=== PATIENT | male | born 2000 | race Caucasian/White ===

== ENCOUNTER 2023-07-19 13:38 | Emergency (ER) | payer BC, SELFPAY ==
[2023-07-19 13:53] VITALS: BP 141/79; PULSE 62; RESP 12; TEMP 37.2; O2SAT 100
--- NOTE | 2023-07-19 14:07 | ED.SKABFB ---
HPI - Skin/Abscess/Foreign Bdy General Chief complaint: Skin/Abscess/Foreign Body Stated complaint: Rash Time Seen by Provider: 07/19/23 14:10 Source: patient and RN notes reviewed Mode of arrival: ambulatory Limitations: no limitations History of Present Illness HPI narrative: 23-year-old male [facility] rash to bilateral forearms. Denies it being anywhere else Rash appeared 1 week ago. Has been using [id number] products with minimal relief. Onset (ago): week(s) (1) Related Data Allergies Allergy/AdvReac Type Severity Reaction Status Date / Time No Known Allergies Allergy Verified 07/19/23 13:53 Review of Systems Review of Systems: All systems reviewed & are unremarkable except as noted in HPI and below Constitutional: Constitutional: Reports no additional constitutional complaints Eyes: Eyes: Reports no additional eye complaints ENT: Reports system reviewed and no additional complaints, except as documented Cardiovascular: Cardiovascular: Reports no additional cardiovascular complaints, Denies chest pain and Denies dyspnea Respiratory: Respiratory: Reports no additional respiratory complaints, Denies chest congestion, Denies cough and Denies dyspnea Gastrointestinal: Gastrointestinal: Reports no additional gastrointestinal complaints, Denies abdominal pain, Denies nausea and Denies vomiting Musculoskeletal: Musculoskeletal: Reports no additional musculoskeletal complaints Integumentary/Breasts: Skin/Breast: Reports as per HPI and Reports rash Neurologic: Reports system reviewed and no additional complaints, except as documented Psychiatric: Psychiatric: Reports no additional psychiatric complaints Allergic/Immunologic: Allergic/Immunologic: Reports no additional allergic/immunologic complaints PMFSH Comments At the time of my signature, I reviewed and agree with the nursing past medical, surgical, social, and family history. There is no relevant family history pertinent to the patient complaint. Exam Const: General: cooperative, healthy appearing, comfortable, no acute distress, well developed, alert and well nourished Nutritional Appearance: well nourished Orientation/consciousness: patient oriented x3 Limitations: no limitations HENMT: Head: normal to inspection Ears: hearing grossly normal bilaterally and external ears normal Face/Nose/Sinus: Normal external nose present, Normal nares present, Normal nasal mucous membranes and turbinates present, normal facial exam and face symmetric Face and sinus: normal facial exam and face symmetric Eyes: General: appearance normal, both eyes and all related structures Alignment and Position: alignment normal Periorbital: periorbital findings normal Pupils: Equal, round and reactive pupils present EOM: EOMs intact bilaterally Neck: Neck: normal visual inspection, full ROM, no lymphadenopathy and no meningeal signs Chest: Chest palpation & inspection: normal inspection of the chest Resp: Effort & Inspection: normal respiratory effort and able to speak in complete sentences Auscultation: clear to auscultation bilaterally, no crackles, no rales, no rhonchi and no wheezes Cardio: Rate: regular rate Skin: General skin exam: normal color and no rashes or lesions noted Lesions: no lesions Rashes: rashes noted (Red bilateral forearms linear rashes) Trauma: no lacerations or abrasions Wounds: no wounds Neuro: General: patient oriented x3, gait normal, tone normal, moves all extremities and no meningeal signs Cranial nerves: Yes Equal, round and reactive pupils present Cognition (Neuro): normal cognition Speech: normal speech Gait exam (Neuro): Normal gait present Extrem: General: normal to inspection, full ROM, capillary refill normal and normal gait Psych: Appearance: grossly normal and well kempt Mental Status: mental status grossly normal Speech and movement: Normal speech and movement present and Clear speech present Affect: normal
== END 2023-07-19 14:20 | disposition home or self-care (01) ==
PROVIDERS: Emergency Provider Nurse Practitioner
DX: L25.9 Unspecified contact dermatitis, unspecified cause (principal)
CPT/HCPCS: 99213; G0463

== ENCOUNTER 2023-10-08 12:18 | Emergency (ER) | payer BC, SELFPAY ==
[2023-10-08 12:23] VITALS: BP 124/63; PULSE 58; RESP 16; TEMP 36.9; O2SAT 100
--- NOTE | 2023-10-08 13:05 | ED.SKABFB ---
HPI - Skin/Abscess/Foreign Bdy General Chief complaint: Skin/Abscess/Foreign Body Stated complaint: Rash Source: patient Mode of arrival: ambulatory Limitations: no limitations History of Present Illness HPI narrative: 23-year-old male presented for complaint of rash to bilateral forearms for about 1 week. Endorses exposure to poison lucie. He used his friend's left over prednisone which provided mild improvement. Denies lip, tongue, or throat swelling, shortness of breath or wheezing. Denies changes to soap, detergent, lotion, or any other exposures. No one else in the house or any contacts with similar symptoms. Related Data Allergies Allergy/AdvReac Type Severity Reaction Status Date / Time No Known Allergies Allergy Verified 10/08/23 12:41 Review of Systems Review of Systems: CONSTITUTIONAL: Denies body aches, fever, chills, or sweats. EYES: Denies visual changes, redness, or discharge. ENT: Denies rhinorrhea, congestion CARDIOVASCULAR: Denies chest pain, palpitations, or edema. RESPIRATORY: Denies cough or dyspnea. GASTROINTESTINAL: Denies abdominal pain, nausea, vomiting, or diarrhea. SKIN: reports rash to arms MUSCULOSKELETAL: Denies back pain, joint pain, or myalgia. NEUROLOGIC: Denies headache, numbness, tingling, or weakness. PMFSH Comments At time of signature, I have reviewed and agree with nursing past medical, surgical, social and family history unless otherwise noted. Please see nursing chart for further information. There is no relevant family history pertinent to the presenting complaint Exam Narrative: GENERAL: Well-appearing, well-nourished, and in no acute distress. HEAD: Normocephalic, atraumatic. EYES: PERRLA, conjunctivae clear, and EOMI. ENT: Mucous membranes moist. Oropharynx without edema, erythema or lesions. CHEST: Clear to auscultation. No respiratory distress. HEART: Regular rate and rhythm. SKIN: Warm, dry. mild erythematous vesicles c/w contact dermatitis noted to bilateral forearms NEURO: Alert and oriented x3. PSYCH: Normal mood and affect Course Course Emergency Course: Patient is aware of diagnosis, understands and agrees to treatment plan. Anticipatory guidance given. Patient agrees to follow-up as directed and is aware of reasons to seek care at the emergency department. Portions of this record may have been created with voice recognition software Level of Care: Express Care Visit Vital Signs Vital signs: Vital Signs Temperature 98.4 F 10/08/23 12:23 Pulse Rate 58 L 10/08/23 12:23 Respiratory Rate 16 10/08/23 12:23 Blood Pressure 124/63 10/08/23 12:23 Pulse Oximetry 100 10/08/23 12:23 Oxygen Delivery Room Air 10/08/23 12:23 Temperature 98.4 F 10/08/23 12:23 Pulse Rate 58 L 10/08/23 12:23 Respiratory Rate 16 10/08/23 12:23 Blood Pressure 124/63 10/08/23 12:23 Pulse Oximetry 100 10/08/23 12:23 Oxygen Delivery Room Air 10/08/23 12:23 Reviewed MDM - Skin/Abscess/Foreign Bdy MDM Narrative Medical decision making narrative: Instructed patient to go to nearest ER immediately for any worsening symptoms including but not limited to: fever, spreading rash, pain, sore throat, headache, dizziness, chest pain, trouble breathing, or any symptoms concerning to the patient. Differential Diagnosis Differential diagnosis: Likely abscess of skin or subcutaneous tissue, urticaria, herpes zoster, cellulitis and contact dermatitis Discharge Plan Discharge Clinical Impression: Contact dermatitis Patient Disposition: Home, Self-Care Condition: Stable Instructions: Antibiotic Form, Poison Lucie (ED) Additional Instructions: Take steroids as directed. Benadryl every 8 hours as needed Cool compresses to the sites of itching, avoid hot water. Avoid scratching to reduce the risk of infection Avoid triggers Follow up with your primary care provider as needed in 1 week Go to the ER for worsening symptoms or c
== END 2023-10-08 13:33 | disposition home or self-care (01) ==
PROVIDERS: Emergency Provider Nurse Practitioner Family
DX: L25.9 Unspecified contact dermatitis, unspecified cause (principal)
CPT/HCPCS: 99213; G0463

== ENCOUNTER 2024-10-10 11:19 | Emergency (ER) | payer SELFPAY ==
[2024-10-10 11:28] VITALS: BP 137/71; PULSE 53; RESP 20; TEMP 36.9; O2SAT 98
--- NOTE | 2024-10-10 11:30 | ED.EXTPRO ---
HPI - Extremity Problem General Chief complaint: Extremity Problem,Nontraumatic Stated complaint: both arms going numb Time Seen by Provider: 10/10/24 11:31 Source: patient Mode of arrival: ambulatory Limitations: no limitations History of Present Illness HPI Narrative: 24 y/o male presented for c/o bilateral arm and hand numbness and tingling. Intermittent x2 weeks. denies injury. Endorses bruising to both forearms, and does not know how he got the bruising. Says he has some cramping to the forearms, and arms feel tight. Symptoms started on the Right, now bilateral but worse than left. 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 Nothing for treatment. Denies change in skin color or temp, swelling, or decreased ROM to neck or extremities. Pt says he currently does not feel the tingling, but it occurs at least daily, unable to reproduce. Related Data Allergies Allergy/AdvReac Type Severity Reaction Status Date / Time No Known Allergies Allergy Verified 10/10/24 11:33 Review of Systems Review of Systems: CONSTITUTIONAL: Denies body aches, fever, chills EYES: Denies visual changes ENT: Denies rhinorrhea, congestion CARDIOVASCULAR: Denies chest pain, palpitations, or edema. RESPIRATORY: Denies cough or dyspnea. SKIN: Denies rash, itching, or wounds. MUSCULOSKELETAL: reports arms tingling intermittently NEUROLOGIC: Denies headache All systems reviewed & are unremarkable except as noted in HPI and below PMFSH Comments At time of signature, I have reviewed and agree with nursing past medical, surgical, social and family history unless otherwise noted. Please see nursing chart for further information. There is no relevant family history pertinent to the presenting complaint Exam Narrative: GENERAL: Well-appearing, in no acute distress. CHEST: Speaks in full sentences. No respiratory distress. HEART: Regular rate and rhythm. Normal and equal peripheral pulses. NECK: normal AROM, no vpt. EXTREMITIES: BUEs have normal strength and sensation, normal range of motion at shoulders elbows and wrists. Hand cloth mercerizer back tender strong and equal bilaterally. No edema or ecchymosis, No point tenderness. No open wounds.pulse palpable and equal bilaterally, skin warm, dry, pink. Capillary refill less than 3 seconds. SKIN: Warm, dry, mild yellow healing bruising noted to right forearm. NEURO: Alert and oriented x3. PSYCH: Normal mood and affect Course Course Emergency Course: Patient is aware of diagnosis, understands and agrees to treatment plan. Anticipatory guidance given. Patient agrees to follow-up as directed and is aware of reasons to seek care at the emergency department. Portions of this record may have been created with voice recognition software Level of Care: Express Care Visit Vital Signs Vital signs: Vital Signs Temperature 98.4 F 10/10/24 11:28 Pulse Rate 53 L 10/10/24 11:28 Respiratory Rate 20 10/10/24 11:28 Blood Pressure 137/71 10/10/24 11:28 Pulse Oximetry 98 10/10/24 11:28 Oxygen Delivery Room Air 10/10/24 11:28 Temperature 98.4 F 10/10/24 11:28 Pulse Rate 53 L 10/10/24 11:28 Respiratory Rate 20 10/10/24 11:28 Blood Pressure 137/71 10/10/24 11:28 Pulse Oximetry 98 10/10/24 11:28 Oxygen Delivery Room Air 10/10/24 11:28 Reviewed MDM - Extremity (Nontraumatic) MDM Narrative Medical decision making narrative: Discussed physical exam findings. discussed possible etiologies with patient, offered ER transfer for further evaluation as he reports concern for blood clot. Shared decision making he states he does not want a wait in the ER for several hours. Declined imaging. At this time we will try prescription for steroid, and he will avoid heavy lifting. Advised to establish with a new PCP. Advised supportive measures and signs/symptoms to go to the ER. Pt is appropriate for outpt treatment and f/u. Differential Diagnosis Differential diagnosis: Likely other (osteoarthritis, elbow dislocation, septic bursitis, epicondylitis, biceps tendon rupture, tendonitis, Cervical radiculopathy) Discharge Plan Discharge Clinical Impression: Paresthesia of both hands Patient Disposition: Home Condition: Stable Instructions: Antibiotic Form, Paresthesia (ED) Additional Instructions: Rest. Avoid pushing, pulling, lifting or anything that worsens the symptoms Tylenol 1000mg every 8 hours as needed take the steroid as directed You can apply [id number] capsaicin cream and a thin layer to the fingers according to package directions Alternate ice/heat to the site. established and Follow up with a primary care provider as needed in 1 week Go to the ER for worsening symptoms or concerns Patient Language: Trinidadian Prescriptions: New methylprednisolone [Medrol (Braulio)] 4 mg tablets,dose pack See Rx Instructions .ROUTE .COMPLEX Qty: 21 0RF Rx Instructions: orally per package directions Follow-up/Referrals: PHYSICIAN,CARTON MAKER [Primary Care Provider] - Stand Alone Forms: Work/School Release IP Time of Disposition: 11:54
== END 2024-10-10 11:59 | disposition home or self-care (01) ==
PROVIDERS: Emergency Provider Nurse Practitioner Family
DX: R20.2 Paresthesia of skin (principal)
CPT/HCPCS: 99213; G0463